=== PATIENT | male | born 1960 | race Caucasian/White ===

== ENCOUNTER → 2017-06-27 | Outpatient (CLI) | payer BC | END | disposition home or self-care (01) | LOC: US 07:29 | DX: N40.0 Benign prostatic hyperplasia without lower urinary tract symptoms (principal); N28.89 Other specified disorders of kidney and ureter ==

== ENCOUNTER 2018-03-11 19:54 | Emergency (ER) | payer BC ==
[~2018-03-11] VITALS: Ht 177.8 cm; Wt 132.4 kg
[2018-03-11] MEDS ORDERED: KEFLEX500 M1 PO (20:21)
== END 2018-03-11 22:22 | disposition home or self-care (01) ==
LOC: ED 19:54
DX: S01.01XA Laceration without foreign body of scalp, initial encounter (principal); R03.0 Elevated blood-pressure reading, without diagnosis of hypertension; W17.89XA Other fall from one level to another, initial encounter; Y93.01 Activity, walking, marching and hiking; Y92.098 Other place in other non-institutional residence as the place of occurrence of the external cause; Y99.8 Other external cause status

== ENCOUNTER → 2019-10-23 | Outpatient (CLI) | payer BC ==
[~2019-10-23] MED LIST: KEFLEX500 M1 PO
[2019-10-23 08:57] LABS: BASO % 0.5 % (0.0-1.0); EOS # 0.1 10*3/uL (0.0-0.4); EOS % 1.5 % (1.0-4.0); LYMPH # 1.4 10*3/uL (1.3-4.4); LYMPH % 21.1 % (27.0-41.0); MEAN CORPUSCULAR HGB 29.8 pg (27.0-31.0); MEAN CORPUSCULAR HGB CONC 32.4 g/dl (33.0-37.0); MEAN PLATELET VOLUME 9.2 fl (9.6-12.3); MONO # 0.4 10*3/uL (0.1-1.0); MONO % 6.8 % (3.0-9.0); NEUT # 4.6 10*3/uL (2.3-7.9); NEUT % 69.9 % (47.0-73.0); PLATELET COUNT AUTOMATED 221 10*3/uL (130-400); RED BLOOD COUNT 4.13 10*6/uL (4.50-5.90); RED CELL DISTRI WIDTH 13.2 % (0-14.5); RETICULOCYTE % 1.78 % (0.50-2.50); WHITE BLOOD COUNT 6.5 10*3/uL (4.8-10.8)
[2019-10-23 09:24] LABS: ALBUMIN 3.2 gm/dl (3.1-4.5); ALKALINE PHOSPHATASE 79 U/L (45-117); BUN 10 mg/dl (7-24); CHLORIDE 97 mmol/L (98-107); CHOLESTEROL 137 mg/dL (<200); CREATININE 0.72 mg/dL (0.70-1.30); GAMMA GLUTAMYL TRANSPEPTIDASE 68 U/L (15-85); HDL CHOLESTEROL 75 mg/dl (40-60); IRON 53 ug/dL (65-175); LDL CHOLESTEROL 53 mg/dL (9-159); POTASSIUM 4.6 mmol/L (3.5-5.1); SGOT/AST 13 IU/L (3-35); SGPT/ALT 26 U/L (12-78); SODIUM 133 mmol/L (136-145); TOTAL IRON BINDING CAPACITY 342 ug/dl (250-450); TOTAL PROTEIN 7.4 gm/dL (6.4-8.2); TRIGLYCERIDES 47 mg/dl (<150); URIC ACID 6.4 mg/dL (3.5-7.2); VLDL CHOLESTEROL 9 mg/dL (6-40)
[2019-10-23 09:59] LABS: BILIRUBIN NEGATIVE (NEGATIVE); CLARITY SL CLOUDY (CLEAR); COLOR YELLOW (YELLOW); GLUCOSE NEGATIVE (NEGATIVE); KETONE NEGATIVE (NEGATIVE)
[2019-10-23 10:00] LABS: BLOOD 3+ (NEGATIVE); LEUKO ESTERASE TRACE (NEGATIVE); NITRITE NEGATIVE (NEGATIVE); SPECIFIC GRAVITY 1.015 (1.005-1.030); UROBILINOGEN 0.2 E.U./dl (0.2-1.0)
[2019-10-23 10:01] LABS: RBC 51-100 rbc/hpf (0-2)
[2019-10-23 10:05] LABS: BACTERIA 1+
[2019-10-23 10:19] LABS: FERRITIN 118.2 ng/mL (22.0-322.0); VITAMIN D, 25-HYDROXY 30.6 ng/mL (30-100)
== END | disposition home or self-care (01) ==
LOC: LAB 08:27
PROVIDERS: Family Medicine
DX: E78.5 Hyperlipidemia, unspecified (principal); E55.9 Vitamin D deficiency, unspecified; R79.89 Other specified abnormal findings of blood chemistry; R53.83 Other fatigue

== ENCOUNTER → 2019-11-09 | Outpatient (CLI) | payer BC ==
[2019-11-09 10:02] LABS: HEMATOCRIT 40.7 % (42.0-52.0); MEAN CELL VOLUME 93.1 fl (80.0-94.0); MEAN CORPUSCULAR HGB 29.3 pg (27.0-31.0); MEAN CORPUSCULAR HGB CONC 31.4 g/dl (33.0-37.0); PLATELET COUNT AUTOMATED 173 10*3/uL (130-400); RED BLOOD COUNT 4.37 10*6/uL (4.50-5.90); RED CELL DISTRI WIDTH 14.1 % (0-14.5); RETICULOCYTE % 2.14 % (0.50-2.50); WHITE BLOOD COUNT 5.5 10*3/uL (4.8-10.8)
[2019-11-09 10:05] LABS: BILIRUBIN NEGATIVE (NEGATIVE); BLOOD 3+ (NEGATIVE); CLARITY CLEAR (CLEAR); COLOR YELLOW (YELLOW); GLUCOSE NEGATIVE (NEGATIVE); KETONE NEGATIVE (NEGATIVE); LEUKO ESTERASE NEGATIVE (NEGATIVE); NITRITE NEGATIVE (NEGATIVE); UROBILINOGEN 0.2 E.U./dl (0.2-1.0)
[2019-11-09 10:12] LABS: BACTERIA TRACE; RBC 31-40 rbc/hpf (0-2)
[2019-11-09 10:30] LABS: IRON 53 ug/dL (65-175); TOTAL IRON BINDING CAPACITY 340 ug/dl (250-450)
[2019-11-09 10:32] LABS: ALBUMIN 3.3 gm/dl (3.1-4.5); ALKALINE PHOSPHATASE 93 U/L (45-117); BUN 10 mg/dl (7-24); CHLORIDE 96 mmol/L (98-107); CREATININE 0.72 mg/dL (0.70-1.30); POTASSIUM 4.6 mmol/L (3.5-5.1); SGOT/AST 14 IU/L (3-35); SGPT/ALT 23 U/L (12-78); SODIUM 132 mmol/L (136-145); TOTAL PROTEIN 7.3 gm/dL (6.4-8.2)
[2019-11-09 10:51] LABS: BASOPHILS 2 % (0-1); TOTAL CELLS COUNTED 100 #CELLS
[2019-11-09 10:52] LABS: PLATELET SUFFICIENCY NORMAL (NORMAL)
[2019-11-10 08:08] LABS: TOTAL PROTEIN, SERUM 6.7 g/dL (6.0-8.5)
[2019-11-12 15:06] LABS: A/G RATIO 1.2 (0.7-1.7); ALBUMIN 3.6 g/dL (2.9-4.4); ALPHA-1-GLOBULIN 0.3 g/dL (0.0-0.4); ALPHA-2-GLOBULIN 0.7 g/dL (0.4-1.0); BETA GLOBULIN 1.1 g/dL (0.7-1.3); GLOBULIN, TOTAL 3.1 g/dL (2.2-3.9); M-SPIKE Not Observed g/dL (Not Observed)
== END | disposition home or self-care (01) ==
LOC: LAB 09:33
PROVIDERS: Family Medicine; Nurse Practitioner Family
DX: Z12.5 Encounter for screening for malignant neoplasm of prostate (principal); R31.9 Hematuria, unspecified; R53.83 Other fatigue; R79.89 Other specified abnormal findings of blood chemistry

== ENCOUNTER → 2019-11-16 | Outpatient (CLI) | payer BC | END | disposition home or self-care (01) | LOC: CT 11-12 10:00 | DX: R31.9 Hematuria, unspecified (principal) ==

== ENCOUNTER → 2020-08-02 | Outpatient (CLI) | payer BC ==
[2020-08-02 10:59] LABS: BILIRUBIN Negative (Negative); BLOOD 2+ (Negative); CLARITY Clear (Clear); COLOR Yellow (Yellow); GLUCOSE Negative (Negative); KETONE Negative (Negative); LEUKO ESTERASE Negative (Negative); NITRITE Negative (Negative); PH 5.5 (4.5-8.0); SPECIFIC GRAVITY 1.025 (1.001-1.030); UROBILINOGEN 0.2 E.U./dl (0.0-1.0)
[2020-08-02 11:26] LABS: ALBUMIN 3.7 gm/dl (3.1-4.5); ALKALINE PHOSPHATASE 81 U/L (45-117); BUN 28 mg/dl (7-24); CHLORIDE 103 mmol/L (98-107); SGOT/AST 15 IU/L (3-35); SGPT/ALT 21 U/L (12-78); SODIUM 134 mmol/L (136-145); TOTAL PROTEIN 7.7 gm/dL (6.4-8.2); URIC ACID 9.9 mg/dL (3.5-7.2)
[2020-08-02 11:37] LABS: BASO % 0.5 % (0.0-1.0); EOS # 0.2 10*3/uL (0.0-0.4); EOS % 2.8 % (1.0-4.0); HEMATOCRIT 38.4 % (42.0-52.0); LYMPH # 1.6 10*3/uL (1.3-4.4); LYMPH % 21.8 % (27.0-41.0); MEAN CELL VOLUME 91.2 fl (80.0-94.0); MEAN CORPUSCULAR HGB 29.9 pg (27.0-31.0); MEAN CORPUSCULAR HGB CONC 32.8 g/dl (33.0-37.0); MEAN PLATELET VOLUME 10.9 fl (9.6-12.3); MONO # 0.5 10*3/uL (0.1-1.0); MONO % 7.3 % (3.0-9.0); NEUT % 67.3 % (47.0-73.0); PLATELET COUNT AUTOMATED 184 10*3/uL (130-400); RED BLOOD COUNT 4.21 10*6/uL (4.50-5.90); RED CELL DISTRI WIDTH 13.2 % (0-14.5); WHITE BLOOD COUNT 7.4 10*3/uL (4.8-10.8)
[2020-08-02 12:26] LABS: BACTERIA TRACE
== END | disposition home or self-care (01) ==
LOC: LAB 09:36 → CT 10:00
PROVIDERS: Internal Medicine Nephrology; ATTEND Urology
DX: Z12.5 Encounter for screening for malignant neoplasm of prostate (principal); R31.9 Hematuria, unspecified; N28.89 Other specified disorders of kidney and ureter; K57.30 Diverticulosis of large intestine without perforation or abscess without bleeding; D40.0 Neoplasm of uncertain behavior of prostate; I10 Essential (primary) hypertension; R53.83 Other fatigue; Z90.5 Acquired absence of kidney

== ENCOUNTER 2020-08-19 10:21 | Emergency (ER) | payer BC ==
[~2020-08-19] VITALS: Ht 177.8 cm; Wt 127.0 kg
== END 2020-08-19 12:22 | disposition home or self-care (01) ==
LOC: ED 10:21
DX: R04.0 Epistaxis (principal); I10 Essential (primary) hypertension; I48.91 Unspecified atrial fibrillation; Z79.899 Other long term (current) drug therapy

== ENCOUNTER → 2021-06-02 | Outpatient (CLI) | payer BC | END | disposition home or self-care (01) | LOC: RAD 10:13 | PROVIDERS: ATTEND Family Medicine | DX: I70.292 Other atherosclerosis of native arteries of extremities, left leg (principal); M17.12 Unilateral primary osteoarthritis, left knee; M25.762 Osteophyte, left knee ==

== ENCOUNTER → 2021-08-31 | Outpatient (CLI) | payer BC ==
[2021-08-31 11:49] LABS: BILIRUBIN Negative (Negative); BLOOD Negative (Negative); CLARITY Clear (Clear); COLOR Yellow (Yellow); GLUCOSE Negative (Negative); KETONE Negative (Negative); LEUKO ESTERASE Negative (Negative); NITRITE Negative (Negative); PH 6.5 (4.5-8.0); SPECIFIC GRAVITY <= 1.005 (1.001-1.030); UROBILINOGEN 0.2 E.U./dl (0.0-1.0)
[2021-08-31 11:56] LABS: BASO % 0.6 % (0.0-1.0); EOS # 0.2 10*3/uL (0.0-0.4); EOS % 3.1 % (1.0-4.0); HEMATOCRIT 40.2 % (42.0-52.0); LYMPH # 1.5 10*3/uL (1.3-4.4); LYMPH % 20.9 % (27.0-41.0); MEAN CELL VOLUME 93.3 fl (80.0-94.0); MEAN CORPUSCULAR HGB 31.6 pg (27.0-31.0); MEAN CORPUSCULAR HGB CONC 33.8 g/dl (33.0-37.0); MONO # 0.6 10*3/uL (0.1-1.0); NEUT # 4.8 10*3/uL (2.3-7.9); NEUT % 67.1 % (47.0-73.0); PLATELET COUNT AUTOMATED 184 10*3/uL (130-400); RED BLOOD COUNT 4.31 10*6/uL (4.50-5.90); RED CELL DISTRI WIDTH 13.1 % (0-14.5); RETICULOCYTE % 2.36 % (0.50-2.50); WHITE BLOOD COUNT 7.1 10*3/uL (4.8-10.8)
[2021-08-31 12:02] LABS: FINE GRANULAR CAST 0-2; MUCOUS 1+; WBC 0-2 wbc/hpf (0-5)
[2021-08-31 12:09] LABS: BUN 24 mg/dl (7-24); CHLORIDE 97 mmol/L (98-107); CHOLESTEROL 161 mg/dL (<200); GAMMA GLUTAMYL TRANSPEPTIDASE 46 U/L (15-85); POTASSIUM 5.4 mmol/L (3.5-5.1); SODIUM 130 mmol/L (136-145); TRIGLYCERIDES 101 mg/dl (<150)
[2021-08-31 12:19] LABS: ALKALINE PHOSPHATASE 79 U/L (45-117); IRON 102 ug/dL (65-175); LDL CHOLESTEROL 60 mg/dL (9-159); SGOT/AST 10 IU/L (3-35); SGPT/ALT 17 U/L (12-78); TOTAL IRON BINDING CAPACITY 395 ug/dl (250-450); TOTAL PROTEIN 7.2 gm/dL (6.4-8.2)
[2021-08-31 12:46] LABS: VITAMIN D, 25-HYDROXY 26.3 ng/mL (30-100)
[2021-08-31 12:47] LABS: FERRITIN 56.7 ng/mL (22.0-322.0)
== END | disposition home or self-care (01) ==
LOC: LAB 11:26
PROVIDERS: ATTEND Family Medicine
DX: R74.8 Abnormal levels of other serum enzymes (principal); E78.5 Hyperlipidemia, unspecified; R79.89 Other specified abnormal findings of blood chemistry; R53.83 Other fatigue; E55.9 Vitamin D deficiency, unspecified

== ENCOUNTER → 2021-10-06 | Outpatient (CLI) | payer BC ==
[2021-10-06 11:52] LABS: BASO % 0.4 % (0.0-1.0); EOS # 0.2 10*3/uL (0.0-0.4); HEMATOCRIT 38.8 % (42.0-52.0); LYMPH # 1.4 10*3/uL (1.3-4.4); LYMPH % 19.1 % (27.0-41.0); MEAN CELL VOLUME 93.3 fl (80.0-94.0); MEAN CORPUSCULAR HGB 31.7 pg (27.0-31.0); MEAN PLATELET VOLUME 9.5 fl (9.6-12.3); MONO # 0.6 10*3/uL (0.1-1.0); MONO % 7.4 % (3.0-9.0); NEUT # 5.3 10*3/uL (2.3-7.9); NEUT % 70.8 % (47.0-73.0); PLATELET COUNT AUTOMATED 200 10*3/uL (130-400); RED BLOOD COUNT 4.16 10*6/uL (4.50-5.90); RED CELL DISTRI WIDTH 13.2 % (0-14.5); RETICULOCYTE % 3.13 % (0.50-2.50); WHITE BLOOD COUNT 7.4 10*3/uL (4.8-10.8)
[2021-10-06 12:08] LABS: ALKALINE PHOSPHATASE 71 U/L (45-117); BUN 30 mg/dl (7-24); CHLORIDE 97 mmol/L (98-107); CREATININE 1.44 mg/dL (0.70-1.30); IRON 74 ug/dL (65-175); POTASSIUM 5.3 mmol/L (3.5-5.1); SGOT/AST 13 IU/L (3-35); SGPT/ALT 18 U/L (12-78); SODIUM 130 mmol/L (136-145); TOTAL IRON BINDING CAPACITY 359 ug/dl (250-450)
== END | disposition home or self-care (01) ==
LOC: LAB 11:21
PROVIDERS: ATTEND Family Medicine
DX: E78.5 Hyperlipidemia, unspecified (principal); R79.89 Other specified abnormal findings of blood chemistry; R53.83 Other fatigue

== ENCOUNTER 2022-04-09 13:05 | Inpatient (IN) | payer BC ==
[~2022-04-09] VITALS: Ht 177.8 cm; Wt 136.3 kg
[2022-04-09 13:22] VITALS: BP 155/102
[2022-04-09 14:13] LABS: BASO % 0.2 % (0.0-1.0); EOS % 0.2 % (1.0-4.0); HEMATOCRIT 39.5 % (42.0-52.0); LYMPH # 0.8 10*3/uL (1.3-4.4); LYMPH % 7.7 % (27.0-41.0); MEAN CELL VOLUME 94.5 fl (80.0-94.0); MEAN CORPUSCULAR HGB 32.1 pg (27.0-31.0); MEAN CORPUSCULAR HGB CONC 33.9 g/dl (33.0-37.0); MEAN PLATELET VOLUME 9.7 fl (9.6-12.3); MONO # 1.1 10*3/uL (0.1-1.0); MONO % 9.8 % (3.0-9.0); NEUT # 8.8 10*3/uL (2.3-7.9); NEUT % 81.8 % (47.0-73.0); PLATELET COUNT AUTOMATED 183 10*3/uL (130-400); RED BLOOD COUNT 4.18 10*6/uL (4.50-5.90); RED CELL DISTRI WIDTH 12.9 % (0-14.5); WHITE BLOOD COUNT 10.8 10*3/uL (4.8-10.8)
[2022-04-09] MEDS ORDERED: LOSARTAN POTASS50 M1 PO (14:19)
[2022-04-09] MEDS ORDERED: FINASTERIDE5 M1 PO (14:19)
[2022-04-09] MEDS ORDERED: XARE20MG PO (14:20)
[2022-04-09] MEDS ORDERED: VITAMIN D3250 MCG PO (14:20)
[2022-04-09] MEDS ORDERED: CARTIA XT300 MG PO (14:20)
[2022-04-09] MEDS ORDERED: TAMSULOSIN HCL0.4 MG PO (14:21)
[2022-04-09] MEDS ORDERED: ALLOPURINOL100 MG PO (14:21)
[2022-04-09] MEDS ORDERED: ALDACTONE50 M1 PO (14:21)
[2022-04-09] MEDS ORDERED: LASIX40 MG PO (14:22)
[2022-04-09] MEDS ORDERED: METOPROLOL SUCC50 M2 PO (14:23)
[2022-04-09] MEDS ORDERED: VENT7GM INH (14:23)
[2022-04-09] MEDS ORDERED: SYMB160 INH (14:24)
[2022-04-09] MEDS ORDERED: VENTOLIN 02.5 MG/3 M INH (14:24)
[2022-04-09 14:27] LABS: INTERNATIONAL NORM RATIO 1.1 (2.0-3.5)
[2022-04-09 14:29] LABS: ALKALINE PHOSPHATASE 73 U/L (45-117); BUN 31 mg/dl (7-24); CHLORIDE 94 mmol/L (98-107); POTASSIUM 5.4 mmol/L (3.5-5.1); SGPT/ALT 18 U/L (12-78); SODIUM 128 mmol/L (136-145); TOTAL PROTEIN 7.6 gm/dL (6.4-8.2)
[2022-04-09 17:37] VITALS: BP 165/104
[2022-04-09 19:53] VITALS: BP 140/90
[2022-04-09 22:55] VITALS: BP 151/95
[2022-04-10 05:39] LABS: FREE T4 1.11 ng/dl (0.76-1.46); THYROID STIM HORMONE (HS) 0.772 uIU/ml (0.358-4.75)
[2022-04-10 06:08] LABS: MEAN CELL VOLUME 92.9 fl (80.0-94.0); MEAN CORPUSCULAR HGB 32.5 pg (27.0-31.0); MEAN PLATELET VOLUME 10.4 fl (9.6-12.3); PLATELET COUNT AUTOMATED 167 10*3/uL (130-400); RED BLOOD COUNT 4.09 10*6/uL (4.50-5.90); RED CELL DISTRI WIDTH 12.8 % (0-14.5); WHITE BLOOD COUNT 8.9 10*3/uL (4.8-10.8)
[2022-04-10 06:22] LABS: MANUAL DIFF REFLEX YES
[2022-04-10 06:51] LABS: PLATELET SUFFICIENCY NORMAL (NORMAL); TOTAL CELLS COUNTED 100 #CELLS
[2022-04-10 06:52] LABS: BURR CELLS FEW
[2022-04-10 06:57] LABS: VITAMIN D, 25-HYDROXY 33.4 ng/mL (30-100)
[2022-04-10 07:15] LABS: BUN 30 mg/dl (7-24); CHLORIDE 92 mmol/L (98-107); CREATININE 1.31 mg/dL (0.70-1.30); SODIUM 126 mmol/L (136-145)
[2022-04-10 08:00] VITALS: BP 133/87
[2022-04-10 12:00] VITALS: BP 122/82
[2022-04-10 16:00] VITALS: BP 125/75
[2022-04-10 20:00] VITALS: BP 146/85
[2022-04-10 23:52] VITALS: BP 132/84
[2022-04-11 06:03] LABS: CREATININE 1.53 mg/dL (0.70-1.30); POTASSIUM 4.7 mmol/L (3.5-5.1)
[2022-04-11 06:15] LABS: HEMATOCRIT 38.8 % (42.0-52.0); MEAN CELL VOLUME 93.5 fl (80.0-94.0); MEAN CORPUSCULAR HGB 31.8 pg (27.0-31.0); MEAN PLATELET VOLUME 10.8 fl (9.6-12.3); PLATELET COUNT AUTOMATED 181 10*3/uL (130-400); RED BLOOD COUNT 4.15 10*6/uL (4.50-5.90); WHITE BLOOD COUNT 11.3 10*3/uL (4.8-10.8)
[2022-04-11 06:25] LABS: MANUAL DIFF REFLEX YES
[2022-04-11 07:00] LABS: TOTAL CELLS COUNTED 100 #CELLS
[2022-04-11 07:01] LABS: PLATELET SUFFICIENCY NORMAL (NORMAL)
[2022-04-11 07:07] LABS: BURR CELLS FEW
[2022-04-11 08:00] VITALS: BP 132/91
[2022-04-11 12:00] VITALS: BP 121/68
[2022-04-11 16:00] VITALS: BP 143/84
[2022-04-11 20:00] VITALS: BP 123/77
[2022-04-12] VITALS: BP 135/89
[2022-04-12 06:09] LABS: BASO % 0.1 % (0.0-1.0); HEMATOCRIT 39.7 % (42.0-52.0); LYMPH # 0.6 10*3/uL (1.3-4.4); LYMPH % 5.7 % (27.0-41.0); MEAN CELL VOLUME 93.6 fl (80.0-94.0); MEAN CORPUSCULAR HGB 32.3 pg (27.0-31.0); MEAN CORPUSCULAR HGB CONC 34.5 g/dl (33.0-37.0); MEAN PLATELET VOLUME 10.4 fl (9.6-12.3); MONO # 0.4 10*3/uL (0.1-1.0); MONO % 4.2 % (3.0-9.0); NEUT # 9.4 10*3/uL (2.3-7.9); NEUT % 89.2 % (47.0-73.0); PLATELET COUNT AUTOMATED 188 10*3/uL (130-400); RED BLOOD COUNT 4.24 10*6/uL (4.50-5.90); RED CELL DISTRI WIDTH 12.8 % (0-14.5); WHITE BLOOD COUNT 10.6 10*3/uL (4.8-10.8)
[2022-04-12 06:19] LABS: CREATININE 1.49 mg/dL (0.70-1.30); POTASSIUM 4.7 mmol/L (3.5-5.1)
[2022-04-12 08:00] VITALS: BP 146/91
[2022-04-12 12:00] VITALS: BP 127/86
[2022-04-12 14:26] LABS: URINE CREATININE RANDOM 34.4 mg/dL
[2022-04-12 16:00] VITALS: BP 128/86
[2022-04-12 20:00] VITALS: BP 121/79
[2022-04-13] VITALS: BP 135/78
[2022-04-13 05:39] LABS: CREATININE 1.62 mg/dL (0.70-1.30); POTASSIUM 4.6 mmol/L (3.5-5.1)
[2022-04-13 06:28] LABS: BASO % 0.1 % (0.0-1.0); HEMATOCRIT 41.3 % (42.0-52.0); LYMPH # 0.9 10*3/uL (1.3-4.4); LYMPH % 9.1 % (27.0-41.0); MEAN CELL VOLUME 96.5 fl (80.0-94.0); MEAN CORPUSCULAR HGB 31.8 pg (27.0-31.0); MEAN CORPUSCULAR HGB CONC 32.9 g/dl (33.0-37.0); MEAN PLATELET VOLUME 10.6 fl (9.6-12.3); MONO # 0.7 10*3/uL (0.1-1.0); MONO % 7.2 % (3.0-9.0); NEUT % 82.5 % (47.0-73.0); PLATELET COUNT AUTOMATED 188 10*3/uL (130-400); RED BLOOD COUNT 4.28 10*6/uL (4.50-5.90); RED CELL DISTRI WIDTH 12.7 % (0-14.5); WHITE BLOOD COUNT 9.7 10*3/uL (4.8-10.8)
[2022-04-13 08:00] VITALS: BP 153/90
[2022-04-13] MEDS ORDERED: LEVOFLOXACIN750 M2 PO (11:46)
[2022-04-13] MEDS ORDERED: ASPIRIN ADULT L81 M2 PO (11:46)
[2022-04-13] MEDS ORDERED: ATORVASTATIN CA40 M1 PO (11:46)
[2022-04-13] MEDS ORDERED: LASIX40 MG PO (11:46)
[2022-04-13] MEDS ORDERED: PREDNISONE10 MG PO (11:46)
[2022-04-13] MEDS ORDERED: METOPROLOL SUCC25 M2 PO ×2 (11:46→12:18)
[2022-04-13 12:00] VITALS: BP 119/77
== END 2022-04-13 14:17 | disposition home or self-care (01) | DRG 871 ==
LOC: ED 13:05 → EDHOLD 17:38 → 4E 17:38
PROVIDERS: Family Medicine; Internal Medicine; Student in an Organized Health Care Education/Training Program; ADMIT Family Medicine; ATTEND Family Medicine
DX: A41.9 Sepsis, unspecified organism (principal); I50.31 Acute diastolic (congestive) heart failure; J18.9 Pneumonia, unspecified organism; J98.11 Atelectasis; E87.1 Hypo-osmolality and hyponatremia; J44.1 Chronic obstructive pulmonary disease with (acute) exacerbation; C64.9 Malignant neoplasm of unspecified kidney, except renal pelvis; J44.0 Chronic obstructive pulmonary disease with (acute) lower respiratory infection; D53.9 Nutritional anemia, unspecified; E87.5 Hyperkalemia; I25.10 Atherosclerotic heart disease of native coronary artery without angina pectoris; E87.8 Other disorders of electrolyte and fluid balance, not elsewhere classified; R73.9 Hyperglycemia, unspecified; E83.42 Hypomagnesemia; I48.91 Unspecified atrial fibrillation; Z90.5 Acquired absence of kidney; Z85.528 Personal history of other malignant neoplasm of kidney

== ENCOUNTER → 2022-06-15 | Outpatient (CLI) | payer BC ==
[~2022-06-15] MED LIST changes: +ALDACTONE50 M1 PO; +ALLOPURINOL100 MG PO; +ASPIRIN ADULT L81 M2 PO; +ATORVASTATIN CA40 M1 PO; +CARTIA XT300 MG PO; +FINASTERIDE5 M1 PO; +LASIX40 MG PO; +LEVOFLOXACIN750 M2 PO; +LOSARTAN POTASS50 M1 PO; +METOPROLOL SUCC25 M2 PO; +METOPROLOL SUCC50 M2 PO; +PREDNISONE10 MG PO; +SYMB160 INH; +TAMSULOSIN HCL0.4 MG PO; +VENT7GM INH; +VENTOLIN 02.5 MG/3 M INH; +VITAMIN D3250 MCG PO; +XARE20MG PO
[2022-06-15 10:05] LABS: BASO % 0.3 % (0.0-1.0); EOS % 0.6 % (1.0-4.0); HEMATOCRIT 42.1 % (42.0-52.0); LYMPH # 1.2 10*3/uL (1.3-4.4); LYMPH % 16.7 % (27.0-41.0); MEAN CELL VOLUME 98.1 fl (80.0-94.0); MEAN CORPUSCULAR HGB CONC 31.6 g/dl (33.0-37.0); MEAN PLATELET VOLUME 10.4 fl (9.6-12.3); MONO # 0.7 10*3/uL (0.1-1.0); MONO % 10.5 % (3.0-9.0); NEUT # 5.1 10*3/uL (2.3-7.9); NEUT % 71.6 % (47.0-73.0); PLATELET COUNT AUTOMATED 163 10*3/uL (130-400); RED BLOOD COUNT 4.29 10*6/uL (4.50-5.90); RED CELL DISTRI WIDTH 13.2 % (0-14.5); RETICULOCYTE % 2.02 % (0.50-2.50); WHITE BLOOD COUNT 7.1 10*3/uL (4.8-10.8)
[2022-06-15 10:17] LABS: BILIRUBIN Negative (Negative); BLOOD Negative (Negative); CLARITY Clear (Clear); COLOR Yellow (Yellow); GLUCOSE Negative (Negative); KETONE Negative (Negative); LEUKO ESTERASE Negative (Negative); NITRITE Negative (Negative); PH 6.5 (4.5-8.0)
[2022-06-15 10:29] LABS: ALKALINE PHOSPHATASE 77 U/L (46-116); BUN 22 mg/dl (9-23); CHLORIDE 95 mmol/L (98-107); CHOLESTEROL 149 mg/dL (<200); GAMMA GLUTAMYL TRANSPEPTIDASE 27 U/L (0-73); LDL CHOLESTEROL 64 mg/dL (9-159); POTASSIUM 4.4 mmol/L (3.4-5.1); SGPT/ALT 12 U/L (10-49); THYROID STIM HORMONE (HS) 2.231 uIU/ml (0.550-4.780); TOTAL PROTEIN 6.3 gm/dL (6.0-8.0); TRIGLYCERIDES 99 mg/dl (<150)
[2022-06-15 10:31] LABS: RBC 0-2 rbc/hpf (0-2); WBC 0-2 wbc/hpf (0-5)
== END | disposition home or self-care (01) ==
LOC: LAB 08:56
PROVIDERS: ATTEND Family Medicine
DX: J43.9 Emphysema, unspecified (principal); E78.5 Hyperlipidemia, unspecified; E55.9 Vitamin D deficiency, unspecified; R79.89 Other specified abnormal findings of blood chemistry; R53.83 Other fatigue; R74.8 Abnormal levels of other serum enzymes; I51.7 Cardiomegaly; M47.814 Spondylosis without myelopathy or radiculopathy, thoracic region

== ENCOUNTER → 2022-08-11 | Outpatient (CLI) | payer BC ==
[2022-08-11 10:32] LABS: BASO % 0.7 % (0.0-1.0); EOS # 0.1 10*3/uL (0.0-0.4); EOS % 1.7 % (1.0-4.0); HEMATOCRIT 43.3 % (42.0-52.0); LYMPH # 1.3 10*3/uL (1.3-4.4); LYMPH % 22.8 % (27.0-41.0); MEAN CELL VOLUME 94.3 fl (80.0-94.0); MEAN CORPUSCULAR HGB 30.3 pg (27.0-31.0); MEAN CORPUSCULAR HGB CONC 32.1 g/dl (33.0-37.0); MEAN PLATELET VOLUME 10.7 fl (9.6-12.3); MONO # 0.5 10*3/uL (0.1-1.0); MONO % 8.1 % (3.0-9.0); NEUT # 3.8 10*3/uL (2.3-7.9); NEUT % 66.5 % (47.0-73.0); PLATELET COUNT AUTOMATED 172 10*3/uL (130-400); RED BLOOD COUNT 4.59 10*6/uL (4.50-5.90); RED CELL DISTRI WIDTH 12.8 % (0-14.5); WHITE BLOOD COUNT 5.8 10*3/uL (4.8-10.8)
[2022-08-11 10:36] LABS: BILIRUBIN Negative (Negative); BLOOD Negative (Negative); CLARITY Clear (Clear); COLOR Yellow (Yellow); GLUCOSE 1+ (Negative); KETONE Negative (Negative); LEUKO ESTERASE Negative (Negative); NITRITE Negative (Negative); PH 6.5 (4.5-8.0); UROBILINOGEN 0.2 E.U./dl (0.0-1.0)
[2022-08-11 10:43] LABS: WBC 0-2 wbc/hpf (0-5)
[2022-08-11 10:55] LABS: URINE CREATININE RANDOM 27.02 mg/dL
[2022-08-11 11:02] LABS: VITAMIN D, 25-HYDROXY 51.7 ng/mL (30-100)
[2022-08-11 13:19] LABS: BUN 42 mg/dl (9-23); CHLORIDE 102 mmol/L (98-107); POTASSIUM 4.4 mmol/L (3.4-5.1); URIC ACID 8.8 mg/dL (3.7-9.2)
== END | disposition home or self-care (01) ==
LOC: LAB 10:09
PROVIDERS: ATTEND Internal Medicine Nephrology
DX: N18.30 Chronic kidney disease, stage 3 unspecified (principal); D63.1 Anemia in chronic kidney disease; N25.81 Secondary hyperparathyroidism of renal origin; E79.0 Hyperuricemia without signs of inflammatory arthritis and tophaceous disease

== ENCOUNTER → 2022-09-03 | Day surgery (SDC) | payer BC ==
[~2022-09-03] MED LIST changes: +JARDIANCE10 MG PO; +TOPROL XL50 M1 PO
[2022-09-03 10:23] VITALS: BP 133/64
[2022-09-03 13:24] LABS: BF LYMPHOCYTES 91 %; BF MACROPHAGES 9 %
== END | disposition home or self-care (01) ==
PROVIDERS: ATTEND Internal Medicine Critical Care Medicine
DX: J96.11 Chronic respiratory failure with hypoxia (principal); J43.9 Emphysema, unspecified; J94.8 Other specified pleural conditions; I48.91 Unspecified atrial fibrillation; Z87.891 Personal history of nicotine dependence; Z99.81 Dependence on supplemental oxygen; Z85.528 Personal history of other malignant neoplasm of kidney

== ENCOUNTER → 2022-10-11 | Outpatient (CLI) | payer BC ==
[2022-10-11 10:19] LABS: BILIRUBIN Negative (Negative); BLOOD Trace-Intact (Negative); CLARITY Clear (Clear); COLOR Yellow (Yellow); GLUCOSE 2+ (Negative); KETONE Negative (Negative); LEUKO ESTERASE Negative (Negative); NITRITE Negative (Negative); SPECIFIC GRAVITY 1.015 (1.001-1.030)
[2022-10-11 10:20] LABS: BASO # 0.1 10*3/uL (0.0-0.1); BASO % 0.9 % (0.0-1.0); EOS # 0.2 10*3/uL (0.0-0.4); EOS % 2.6 % (1.0-4.0); HEMATOCRIT 43.6 % (42.0-52.0); LYMPH # 0.9 10*3/uL (1.3-4.4); LYMPH % 12.6 % (27.0-41.0); MEAN CELL VOLUME 94.6 fl (80.0-94.0); MEAN CORPUSCULAR HGB 29.1 pg (27.0-31.0); MEAN CORPUSCULAR HGB CONC 30.7 g/dl (33.0-37.0); MEAN PLATELET VOLUME 10.5 fl (9.6-12.3); MONO # 0.6 10*3/uL (0.1-1.0); MONO % 8.7 % (3.0-9.0); NEUT # 5.3 10*3/uL (2.3-7.9); NEUT % 74.9 % (47.0-73.0); PLATELET COUNT AUTOMATED 226 10*3/uL (130-400); RED BLOOD COUNT 4.61 10*6/uL (4.50-5.90); RED CELL DISTRI WIDTH 13.3 % (0-14.5); RETICULOCYTE % 1.62 % (0.50-2.50); WHITE BLOOD COUNT 7.1 10*3/uL (4.8-10.8)
[2022-10-11 10:31] LABS: BACTERIA TRACE; EPITHELIAL CELLS 41-50
[2022-10-11 10:54] LABS: ALKALINE PHOSPHATASE 107 U/L (46-116); BUN 22 mg/dl (9-23); CHLORIDE 102 mmol/L (98-107); CHOLESTEROL 163 mg/dL (<200); GAMMA GLUTAMYL TRANSPEPTIDASE 94 U/L (0-73); LDL CHOLESTEROL 105 mg/dL (9-159); POTASSIUM 4.3 mmol/L (3.4-5.1); SGPT/ALT 20 U/L (10-49); T3 UPTAKE 28.9 % (22.4-36.7); TOTAL PROTEIN 7.1 gm/dL (6.0-8.0); TRIGLYCERIDES 84 mg/dl (<150)
== END | disposition home or self-care (01) ==
LOC: LAB 09:34
PROVIDERS: ATTEND Family Medicine
DX: E78.5 Hyperlipidemia, unspecified (principal); R79.89 Other specified abnormal findings of blood chemistry; R53.83 Other fatigue; R74.8 Abnormal levels of other serum enzymes

== ENCOUNTER → 2023-01-04 | Outpatient (CLI) | payer BC ==
[2023-01-04 09:23] LABS: BASO % 0.5 % (0.0-1.0); BILIRUBIN Negative (Negative); BLOOD Negative (Negative); CLARITY Clear (Clear); COLOR Yellow (Yellow); EOS # 0.1 10*3/uL (0.0-0.4); GLUCOSE Trace (Negative); HEMATOCRIT 45.3 % (42.0-52.0); KETONE Negative (Negative); LEUKO ESTERASE Negative (Negative); LYMPH # 0.7 10*3/uL (1.3-4.4); LYMPH % 8.1 % (27.0-41.0); MEAN CELL VOLUME 93.6 fl (80.0-94.0); MEAN CORPUSCULAR HGB 28.7 pg (27.0-31.0); MEAN CORPUSCULAR HGB CONC 30.7 g/dl (33.0-37.0); MEAN PLATELET VOLUME 10.5 fl (9.6-12.3); MONO # 0.3 10*3/uL (0.1-1.0); MONO % 3.9 % (3.0-9.0); NEUT # 7.5 10*3/uL (2.3-7.9); NEUT % 86.3 % (47.0-73.0); NITRITE Negative (Negative); PH 7.5 (4.5-8.0); PLATELET COUNT AUTOMATED 215 10*3/uL (130-400); RED BLOOD COUNT 4.84 10*6/uL (4.50-5.90); RED CELL DISTRI WIDTH 15.3 % (0-14.5); RETICULOCYTE % 1.98 % (0.50-2.50); WHITE BLOOD COUNT 8.7 10*3/uL (4.8-10.8)
[2023-01-04 09:37] LABS: RBC 0-2 rbc/hpf (0-2)
[2023-01-04 09:38] LABS: HYALINE CAST 0-2
[2023-01-04 14:44] LABS: POTASSIUM 4.4 mmol/L (3.4-5.1); TOTAL PROTEIN 7.3 gm/dL (6.0-8.0)
== END | disposition home or self-care (01) ==
LOC: LAB 08:59
PROVIDERS: ATTEND Family Medicine
DX: R79.89 Other specified abnormal findings of blood chemistry (principal); R53.83 Other fatigue; E78.5 Hyperlipidemia, unspecified

== ENCOUNTER → 2023-01-05 | Outpatient (CLI) | payer BC | END | disposition home or self-care (01) | LOC: WOUNDCARE 01:37 | PROVIDERS: ATTEND Nurse Practitioner Family | DX: L03.116 Cellulitis of left lower limb (principal); S81.812A Laceration without foreign body, left lower leg, initial encounter; R60.9 Edema, unspecified; I48.0 Paroxysmal atrial fibrillation; I11.0 Hypertensive heart disease with heart failure; I50.9 Heart failure, unspecified; E78.00 Pure hypercholesterolemia, unspecified; J43.9 Emphysema, unspecified; M10.9 Gout, unspecified; M19.90 Unspecified osteoarthritis, unspecified site; Z87.891 Personal history of nicotine dependence; X58.XXXA Exposure to other specified factors, initial encounter; Y93.89 Activity, other specified; Y92.89 Other specified places as the place of occurrence of the external cause; Y99.8 Other external cause status ==

== ENCOUNTER → 2023-01-19 | Outpatient (CLI) | payer BC | END | disposition home or self-care (01) | LOC: WOUNDCARE 01:19 | PROVIDERS: ATTEND Nurse Practitioner Family | DX: S81.802D Unspecified open wound, left lower leg, subsequent encounter (principal); S81.812D Laceration without foreign body, left lower leg, subsequent encounter; L03.116 Cellulitis of left lower limb; J43.9 Emphysema, unspecified; E78.00 Pure hypercholesterolemia, unspecified; M10.9 Gout, unspecified; M19.90 Unspecified osteoarthritis, unspecified site; I11.0 Hypertensive heart disease with heart failure; I50.9 Heart failure, unspecified; R60.9 Edema, unspecified; I48.0 Paroxysmal atrial fibrillation; Z87.891 Personal history of nicotine dependence; X58.XXXD Exposure to other specified factors, subsequent encounter ==

== ENCOUNTER → 2023-01-26 | Outpatient (CLI) | payer BC | END | disposition home or self-care (01) | LOC: US 01:27 | PROVIDERS: ATTEND Nurse Practitioner Family | DX: I87.2 Venous insufficiency (chronic) (peripheral) (principal); R60.9 Edema, unspecified; L97.929 Non-pressure chronic ulcer of unspecified part of left lower leg with unspecified severity; I10 Essential (primary) hypertension ==

== ENCOUNTER → 2023-01-27 | Outpatient (CLI) | payer BC | LOC: WOUNDCARE 01:49 | PROVIDERS: ATTEND Nurse Practitioner Family | DX: L03.116 Cellulitis of left lower limb (principal); S81.802D Unspecified open wound, left lower leg, subsequent encounter; R60.9 Edema, unspecified; I48.0 Paroxysmal atrial fibrillation; E78.00 Pure hypercholesterolemia, unspecified; I11.0 Hypertensive heart disease with heart failure; I50.9 Heart failure, unspecified; J43.9 Emphysema, unspecified; M19.90 Unspecified osteoarthritis, unspecified site; M10.9 Gout, unspecified; Z87.891 Personal history of nicotine dependence; X58.XXXD Exposure to other specified factors, subsequent encounter ==

== ENCOUNTER → 2023-02-01 | Outpatient (CLI) | payer BC ==
[2023-02-01 11:49] LABS: POTASSIUM 4.7 mmol/L (3.4-5.1)
== END | disposition home or self-care (01) ==
LOC: LAB 11:13
PROVIDERS: ATTEND Internal Medicine
DX: N18.9 Chronic kidney disease, unspecified (principal)

== ENCOUNTER → 2023-02-10 | Outpatient (CLI) | payer BC | END | disposition home or self-care (01) | LOC: WOUNDCARE 00:35 | PROVIDERS: ATTEND Nurse Practitioner Family | DX: L03.116 Cellulitis of left lower limb (principal); S81.802D Unspecified open wound, left lower leg, subsequent encounter; S81.812D Laceration without foreign body, left lower leg, subsequent encounter; R60.9 Edema, unspecified; I48.0 Paroxysmal atrial fibrillation; E78.00 Pure hypercholesterolemia, unspecified; I48.91 Unspecified atrial fibrillation; I11.0 Hypertensive heart disease with heart failure; I50.9 Heart failure, unspecified; J43.9 Emphysema, unspecified; M10.9 Gout, unspecified; M19.90 Unspecified osteoarthritis, unspecified site; Z87.891 Personal history of nicotine dependence; X58.XXXD Exposure to other specified factors, subsequent encounter ==

== ENCOUNTER → 2023-02-24 | Outpatient (CLI) | payer BC | END | disposition home or self-care (01) | LOC: WOUNDCARE 01:32 | PROVIDERS: ATTEND Nurse Practitioner Family | DX: L03.116 Cellulitis of left lower limb (principal); S81.802D Unspecified open wound, left lower leg, subsequent encounter; L97.822 Non-pressure chronic ulcer of other part of left lower leg with fat layer exposed; R60.9 Edema, unspecified; I48.0 Paroxysmal atrial fibrillation; E78.00 Pure hypercholesterolemia, unspecified; J43.9 Emphysema, unspecified; I48.91 Unspecified atrial fibrillation; I11.0 Hypertensive heart disease with heart failure; I50.9 Heart failure, unspecified; M10.9 Gout, unspecified; M19.90 Unspecified osteoarthritis, unspecified site; Z87.891 Personal history of nicotine dependence; X58.XXXD Exposure to other specified factors, subsequent encounter ==

== ENCOUNTER → 2023-03-01 | Outpatient (CLI) | payer BC | LOC: WOUNDCARE 00:43 | PROVIDERS: ATTEND Nurse Practitioner Family | DX: S81.802D Unspecified open wound, left lower leg, subsequent encounter (principal); L97.822 Non-pressure chronic ulcer of other part of left lower leg with fat layer exposed; L03.116 Cellulitis of left lower limb; R60.9 Edema, unspecified; I48.0 Paroxysmal atrial fibrillation; E78.00 Pure hypercholesterolemia, unspecified; I11.0 Hypertensive heart disease with heart failure; I50.9 Heart failure, unspecified; J43.9 Emphysema, unspecified; M10.9 Gout, unspecified; M19.90 Unspecified osteoarthritis, unspecified site; Z87.891 Personal history of nicotine dependence; X58.XXXD Exposure to other specified factors, subsequent encounter ==

== ENCOUNTER → 2023-03-08 | Outpatient (CLI) | payer BC | END | disposition home or self-care (01) | LOC: WOUNDCARE 04:24 | PROVIDERS: ATTEND Nurse Practitioner Family | DX: L97.822 Non-pressure chronic ulcer of other part of left lower leg with fat layer exposed (principal); I87.2 Venous insufficiency (chronic) (peripheral); S81.802D Unspecified open wound, left lower leg, subsequent encounter; L03.116 Cellulitis of left lower limb; R60.9 Edema, unspecified; E78.00 Pure hypercholesterolemia, unspecified; I48.0 Paroxysmal atrial fibrillation; I73.9 Peripheral vascular disease, unspecified; I11.0 Hypertensive heart disease with heart failure; I50.9 Heart failure, unspecified; J43.9 Emphysema, unspecified; M10.9 Gout, unspecified; M19.90 Unspecified osteoarthritis, unspecified site; Z87.891 Personal history of nicotine dependence; X58.XXXD Exposure to other specified factors, subsequent encounter ==

== ENCOUNTER → 2023-03-15 | Outpatient (CLI) | payer BC | END | disposition home or self-care (01) | LOC: WOUNDCARE 04:38 | PROVIDERS: ATTEND Nurse Practitioner Family | DX: L97.822 Non-pressure chronic ulcer of other part of left lower leg with fat layer exposed (principal); S81.802D Unspecified open wound, left lower leg, subsequent encounter; I87.2 Venous insufficiency (chronic) (peripheral); R60.9 Edema, unspecified; L03.116 Cellulitis of left lower limb; I11.0 Hypertensive heart disease with heart failure; I50.9 Heart failure, unspecified; I48.0 Paroxysmal atrial fibrillation; E78.00 Pure hypercholesterolemia, unspecified; J43.9 Emphysema, unspecified; M10.9 Gout, unspecified; M19.90 Unspecified osteoarthritis, unspecified site; Z87.891 Personal history of nicotine dependence; X58.XXXD Exposure to other specified factors, subsequent encounter ==

== ENCOUNTER 2023-03-21 12:56 | Emergency (ER) | payer BC ==
[~2023-03-21] VITALS: Ht 177.8 cm; Wt 153.3 kg
[2023-03-21 13:09] VITALS: BP 139/95
[2023-03-21] MEDS ORDERED: BUMETANIDE1 MG PO (13:20)
[2023-03-21 13:41] LABS: BASO % 0.3 % (0.0-1.0); EOS # 0.1 10*3/uL (0.0-0.4); EOS % 1.9 % (1.0-4.0); LYMPH # 0.8 10*3/uL (1.3-4.4); LYMPH % 11.9 % (27.0-41.0); MEAN CELL VOLUME 98.5 fl (80.0-94.0); MEAN CORPUSCULAR HGB 30.8 pg (27.0-31.0); MEAN CORPUSCULAR HGB CONC 31.3 g/dl (33.0-37.0); MEAN PLATELET VOLUME 10.9 fl (9.6-12.3); MONO # 0.6 10*3/uL (0.1-1.0); MONO % 9.6 % (3.0-9.0); NEUT # 4.9 10*3/uL (2.3-7.9); PLATELET COUNT AUTOMATED 189 10*3/uL (130-400); RED BLOOD COUNT 3.96 10*6/uL (4.50-5.90); RED CELL DISTRI WIDTH 14.6 % (0-14.5); WHITE BLOOD COUNT 6.5 10*3/uL (4.8-10.8)
[2023-03-21 13:52] LABS: ACT PARTIAL THROMBO TIME 35.7 SECONDS (20.0-32.1); INTERNATIONAL NORM RATIO 1.1 (2.0-3.5)
[2023-03-21 14:12] LABS: ALKALINE PHOSPHATASE 88 U/L (46-116); BUN 36 mg/dl (9-23); CHLORIDE 102 mmol/L (98-107); LIPASE 29 U/L (12-53); POTASSIUM 4.7 mmol/L (3.4-5.1); SGPT/ALT 13 U/L (5-49); TOTAL PROTEIN 6.5 gm/dL (6.0-8.0)
[2023-03-21 15:32] VITALS: BP 137/92
[2023-03-21 16:23] VITALS: BP 138/94
[2023-03-21 18:39] VITALS: BP 140/83
[2023-03-21 22:38] VITALS: BP 124/73
[2023-03-22] VITALS: BP 142/80
[2023-03-22 03:22] VITALS: BP 140/70
[2023-03-22 07:25] VITALS: BP 148/95
[2023-03-22 08:02] LABS: RED CELL DISTRI WIDTH 14.4 % (0-14.5)
[2023-03-22 08:36] LABS: CHLORIDE 102 mmol/L (98-107); POTASSIUM 5.2 mmol/L (3.4-5.1)
[2023-03-22 08:39] LABS: BUN 22 mg/dl (9-23)
[2023-03-22 09:04] LABS: HEMATOCRIT 43.6 % (42.0-52.0); MEAN CELL VOLUME 96.2 fl (80.0-94.0); MEAN CORPUSCULAR HGB 30.2 pg (27.0-31.0); MEAN CORPUSCULAR HGB CONC 31.4 g/dl (33.0-37.0); MEAN PLATELET VOLUME 10.6 fl (9.6-12.3); PLATELET COUNT AUTOMATED 200 10*3/uL (130-400); RED BLOOD COUNT 4.53 10*6/uL (4.50-5.90); WHITE BLOOD COUNT 8.9 10*3/uL (4.8-10.8)
[2023-03-22 09:21] LABS: MANUAL DIFF REFLEX YES
[2023-03-22 09:31] LABS: PLATELET SUFFICIENCY NORMAL (NORMAL); TOTAL CELLS COUNTED 100 #CELLS
[2023-03-22 11:14] VITALS: BP 138/75
[2023-03-22 15:11] VITALS: BP 138/76
[2023-03-22 19:55] VITALS: BP 130/74
[2023-03-23 02:52] VITALS: BP 116/78
[2023-03-23 06:30] VITALS: BP 133/92
[2023-03-23 07:44] VITALS: BP 133/92
[2023-03-23 12:13] VITALS: BP 131/92
== END 2023-03-23 12:43 | disposition short-term general hospital (02) ==
LOC: ED 12:56 → EDHOLD 15:07 → ED 03-23 12:43
PROVIDERS: Family Medicine; Physician Assistant Medical
DX: J18.9 Pneumonia, unspecified organism (principal); J90 Pleural effusion, not elsewhere classified; I48.91 Unspecified atrial fibrillation; J44.9 Chronic obstructive pulmonary disease, unspecified; Z98.890 Other specified postprocedural states

== ENCOUNTER → 2023-04-05 | Outpatient (CLI) | payer BC ==
[~2023-04-05] MED LIST changes: +BUMETANIDE1 MG PO
== END | disposition home or self-care (01) ==
LOC: WOUNDCARE 00:27
PROVIDERS: ATTEND Nurse Practitioner Family
DX: S81.802D Unspecified open wound, left lower leg, subsequent encounter (principal); L97.822 Non-pressure chronic ulcer of other part of left lower leg with fat layer exposed; L03.116 Cellulitis of left lower limb; I87.2 Venous insufficiency (chronic) (peripheral); R60.9 Edema, unspecified; I73.9 Peripheral vascular disease, unspecified; I10 Essential (primary) hypertension; I48.0 Paroxysmal atrial fibrillation; E78.00 Pure hypercholesterolemia, unspecified; J43.9 Emphysema, unspecified; I11.0 Hypertensive heart disease with heart failure; I50.9 Heart failure, unspecified; I48.91 Unspecified atrial fibrillation; M19.90 Unspecified osteoarthritis, unspecified site; M10.9 Gout, unspecified; Z87.891 Personal history of nicotine dependence; X58.XXXD Exposure to other specified factors, subsequent encounter

== ENCOUNTER → 2023-04-12 | Outpatient (CLI) | payer BC | END | disposition home or self-care (01) | LOC: WOUNDCARE 02:19 | PROVIDERS: ATTEND Nurse Practitioner Family | DX: L97.822 Non-pressure chronic ulcer of other part of left lower leg with fat layer exposed (principal); S81.802D Unspecified open wound, left lower leg, subsequent encounter; I87.2 Venous insufficiency (chronic) (peripheral); I73.9 Peripheral vascular disease, unspecified; R60.9 Edema, unspecified; L03.116 Cellulitis of left lower limb; I48.0 Paroxysmal atrial fibrillation; I11.0 Hypertensive heart disease with heart failure; I50.9 Heart failure, unspecified; E78.00 Pure hypercholesterolemia, unspecified; J43.9 Emphysema, unspecified; M10.9 Gout, unspecified; M19.90 Unspecified osteoarthritis, unspecified site; Z87.891 Personal history of nicotine dependence; X58.XXXD Exposure to other specified factors, subsequent encounter ==

== ENCOUNTER → 2023-04-19 | Outpatient (CLI) | payer BC | END | disposition home or self-care (01) | LOC: WOUNDCARE 00:30 | PROVIDERS: ATTEND Nurse Practitioner Family | DX: S81.802D Unspecified open wound, left lower leg, subsequent encounter (principal); L97.822 Non-pressure chronic ulcer of other part of left lower leg with fat layer exposed; L03.116 Cellulitis of left lower limb; R60.9 Edema, unspecified; I87.2 Venous insufficiency (chronic) (peripheral); I73.9 Peripheral vascular disease, unspecified; I48.0 Paroxysmal atrial fibrillation; E78.00 Pure hypercholesterolemia, unspecified; I11.0 Hypertensive heart disease with heart failure; I50.9 Heart failure, unspecified; J43.9 Emphysema, unspecified; M10.9 Gout, unspecified; M19.90 Unspecified osteoarthritis, unspecified site; Z87.891 Personal history of nicotine dependence; X58.XXXD Exposure to other specified factors, subsequent encounter ==

== ENCOUNTER → 2023-04-22 | Outpatient (CLI) | payer BC | END | disposition home or self-care (01) | LOC: LAB 09:21 → CARD 09:21 | PROVIDERS: ATTEND Specialist | DX: Z01.818 Encounter for other preprocedural examination (principal); I48.91 Unspecified atrial fibrillation; I49.3 Ventricular premature depolarization ==

== ENCOUNTER → 2023-04-26 | Outpatient (CLI) | payer BC | END | disposition home or self-care (01) | LOC: WOUNDCARE 00:47 | PROVIDERS: ATTEND Nurse Practitioner Family | DX: L97.822 Non-pressure chronic ulcer of other part of left lower leg with fat layer exposed (principal); S81.802D Unspecified open wound, left lower leg, subsequent encounter; L03.116 Cellulitis of left lower limb; R60.9 Edema, unspecified; I87.2 Venous insufficiency (chronic) (peripheral); I73.9 Peripheral vascular disease, unspecified; E78.00 Pure hypercholesterolemia, unspecified; I48.0 Paroxysmal atrial fibrillation; I11.0 Hypertensive heart disease with heart failure; I50.9 Heart failure, unspecified; J43.9 Emphysema, unspecified; M10.9 Gout, unspecified; M19.90 Unspecified osteoarthritis, unspecified site; Z87.891 Personal history of nicotine dependence; X58.XXXD Exposure to other specified factors, subsequent encounter ==

== ENCOUNTER → 2023-05-03 | Outpatient (CLI) | payer BC | END | disposition home or self-care (01) | LOC: WOUNDCARE 00:31 | PROVIDERS: ATTEND Nurse Practitioner Family | DX: L97.821 Non-pressure chronic ulcer of other part of left lower leg limited to breakdown of skin (principal); L03.116 Cellulitis of left lower limb; S81.802D Unspecified open wound, left lower leg, subsequent encounter; I87.2 Venous insufficiency (chronic) (peripheral); I73.9 Peripheral vascular disease, unspecified; I48.0 Paroxysmal atrial fibrillation; I11.0 Hypertensive heart disease with heart failure; I50.9 Heart failure, unspecified; R60.9 Edema, unspecified; J43.9 Emphysema, unspecified; M10.9 Gout, unspecified; E78.00 Pure hypercholesterolemia, unspecified; Z87.891 Personal history of nicotine dependence; X58.XXXD Exposure to other specified factors, subsequent encounter ==

== ENCOUNTER → 2023-05-10 | Outpatient (CLI) | payer BC | END | disposition home or self-care (01) | LOC: WOUNDCARE 01:27 | PROVIDERS: ATTEND Nurse Practitioner Family | DX: S81.802D Unspecified open wound, left lower leg, subsequent encounter (principal); L97.821 Non-pressure chronic ulcer of other part of left lower leg limited to breakdown of skin; L03.116 Cellulitis of left lower limb; R60.9 Edema, unspecified; I87.2 Venous insufficiency (chronic) (peripheral); I73.9 Peripheral vascular disease, unspecified; I48.0 Paroxysmal atrial fibrillation; E78.00 Pure hypercholesterolemia, unspecified; I48.91 Unspecified atrial fibrillation; I11.0 Hypertensive heart disease with heart failure; I50.9 Heart failure, unspecified; M19.90 Unspecified osteoarthritis, unspecified site; M10.9 Gout, unspecified; J43.9 Emphysema, unspecified; Z87.891 Personal history of nicotine dependence; X58.XXXD Exposure to other specified factors, subsequent encounter ==

== ENCOUNTER → 2023-05-18 | Outpatient (CLI) | payer BC | LOC: WOUNDCARE 03:31 | PROVIDERS: ATTEND Nurse Practitioner Family | DX: L97.822 Non-pressure chronic ulcer of other part of left lower leg with fat layer exposed (principal); I87.2 Venous insufficiency (chronic) (peripheral); S81.802D Unspecified open wound, left lower leg, subsequent encounter; L03.116 Cellulitis of left lower limb; I73.9 Peripheral vascular disease, unspecified; R60.9 Edema, unspecified; I48.0 Paroxysmal atrial fibrillation; E78.00 Pure hypercholesterolemia, unspecified; I11.0 Hypertensive heart disease with heart failure; I50.9 Heart failure, unspecified; J43.9 Emphysema, unspecified; M10.9 Gout, unspecified; M19.90 Unspecified osteoarthritis, unspecified site; Z87.891 Personal history of nicotine dependence ==

== ENCOUNTER → 2023-05-26 | Outpatient (CLI) | payer BC ==
[2023-05-26 10:58] LABS: POTASSIUM 4.4 mmol/L (3.4-5.1)
[2023-05-27 16:08] LABS: FREE KAPPA LIGHT CHAINS 76.9 mg/L (3.3-19.4); FREE LAMBDA LIGHT CHAINS 80.5 mg/L (5.7-26.3); KAPPA/LAMBDA RATIO 0.96 (0.26-1.65)
== END | disposition home or self-care (01) ==
LOC: LAB 09:35
PROVIDERS: ATTEND Internal Medicine Cardiovascular Disease
DX: I42.9 Cardiomyopathy, unspecified (principal)

== ENCOUNTER → 2023-07-26 | Outpatient (CLI) | payer BC ==
[2023-07-26 11:53] LABS: POTASSIUM 5.2 mmol/L (3.4-5.1)
== END | disposition home or self-care (01) ==
LOC: LAB 10:42
PROVIDERS: ATTEND Internal Medicine Cardiovascular Disease
DX: I42.8 Other cardiomyopathies (principal)

== ENCOUNTER → 2023-08-24 | Outpatient (CLI) | payer BC ==
[2023-08-24 10:30] LABS: BILIRUBIN Negative (Negative); BLOOD Negative (Negative); CLARITY Clear (Clear); COLOR Yellow (Yellow); GLUCOSE 1+ (Negative); KETONE Negative (Negative); LEUKO ESTERASE Negative (Negative); NITRITE Negative (Negative); PH 6.5 (4.5-8.0); UROBILINOGEN 0.2 E.U./dl (0.0-1.0)
[2023-08-24 11:05] LABS: URINE CREATININE RANDOM 27.64 mg/dL
[2023-08-24 11:07] LABS: POTASSIUM 4.5 mmol/L (3.4-5.1); TOTAL PROTEIN 7.1 gm/dL (6.0-8.0); URIC ACID 6.4 mg/dL (3.7-9.2)
[2023-08-24 11:08] LABS: EPITHELIAL CELLS TNTC; HYALINE CAST 0-2
[2023-08-24 11:09] LABS: RBC 0-2 rbc/hpf (0-2); WBC 0-2 wbc/hpf (0-5)
== END | disposition home or self-care (01) ==
LOC: LAB 10:00
PROVIDERS: ATTEND Internal Medicine Nephrology
DX: N18.30 Chronic kidney disease, stage 3 unspecified (principal)

== ENCOUNTER → 2023-09-26 | Outpatient (CLI) | payer BC ==
[2023-09-26 10:27] LABS: BILIRUBIN Negative (Negative); BLOOD Negative (Negative); CLARITY Clear (Clear); COLOR Yellow (Yellow); GLUCOSE Trace (Negative); KETONE Negative (Negative); LEUKO ESTERASE Negative (Negative); NITRITE Negative (Negative); PH 5.5 (4.5-8.0); UROBILINOGEN 0.2 E.U./dl (0.0-1.0)
[2023-09-26 10:37] LABS: URINE CREATININE RANDOM 30.75 mg/dL
[2023-09-26 10:41] LABS: EPITHELIAL CELLS TNTC; HYALINE CAST 0-2; RBC 0-2 rbc/hpf (0-2); WBC 0-2 wbc/hpf (0-5)
[2023-09-26 10:53] LABS: ALKALINE PHOSPHATASE 96 U/L (46-116); BUN 56 mg/dl (9-23); CHLORIDE 102 mmol/L (98-107); POTASSIUM 5.1 mmol/L (3.4-5.1); URIC ACID 7.2 mg/dL (3.7-9.2)
[2023-09-26 10:54] LABS: SGPT/ALT < 7 U/L (5-49)
== END | disposition home or self-care (01) ==
LOC: LAB 10:00
PROVIDERS: ATTEND Internal Medicine Nephrology
DX: N18.30 Chronic kidney disease, stage 3 unspecified (principal)

== ENCOUNTER → 2023-11-03 | Outpatient (CLI) | payer BC ==
[~2023-11-03] MED LIST changes: +ALBUTEROL; +ALDACTONE25 MG PO; +DILTIAZEM 24HR360 MG PO; +GOOD NEIGHBOR L10 MG PO; +LOPRESSOR50 M1 PO; +SPIRIVA RESPIMAT4 GM INH; +VIBRAMYCIN HYC100 MG PO
[2023-11-03 09:53] LABS: BILIRUBIN Negative (Negative); BLOOD Negative (Negative); CLARITY Clear (Clear); COLOR Yellow (Yellow); GLUCOSE Negative (Negative); KETONE Negative (Negative); LEUKO ESTERASE Negative (Negative); NITRITE Negative (Negative); UROBILINOGEN 0.2 E.U./dl (0.0-1.0)
[2023-11-03 09:56] LABS: URINE CREATININE RANDOM 34.48 mg/dL
[2023-11-03 10:18] LABS: POTASSIUM 4.8 mmol/L (3.4-5.1); URIC ACID 7.2 mg/dL (3.7-9.2)
[2023-11-03 10:30] LABS: RBC 0-2 rbc/hpf (0-2); WBC 0-2 wbc/hpf (0-5)
== END | disposition home or self-care (01) ==
LOC: LAB 09:27
PROVIDERS: ATTEND Internal Medicine Nephrology
DX: N18.30 Chronic kidney disease, stage 3 unspecified (principal)

== ENCOUNTER 2024-01-17 03:17 | Emergency (ER) | payer BC ==
[~2024-01-17] VITALS: Wt 127.0 kg
[2024-01-17] MEDS ORDERED: TRANEXAMIC ACID 1,000 MG/10 ML VIAL NAS ONE (03:30)
[2024-01-17] MEDS ORDERED: COCAINE 4% T ONE (03:30)
[2024-01-17] MEDS ORDERED: SODIUM CHLORIDE 0.9% 500 ML IV ONE (03:30)
[2024-01-17] MEDS ORDERED: Oxymetazoline Hydrochloride Nasal 15 ml bottle NAS ONE (03:30)
[2024-01-17] MEDS ORDERED: SILVER NITRATE APPLICATOR 1 EACH APP T ONE (03:40)
[2024-01-17 03:43] LABS: BASO % 0.3 % (0.0-1.0); EOS # 0.2 10*3/uL (0.0-0.4); EOS % 1.7 % (1.0-4.0); HEMATOCRIT 33.4 % (42.0-52.0); LYMPH # 1.1 10*3/uL (1.3-4.4); LYMPH % 12.1 % (27.0-41.0); MEAN CELL VOLUME 99.7 fl (80.0-94.0); MEAN CORPUSCULAR HGB 30.4 pg (27.0-31.0); MEAN CORPUSCULAR HGB CONC 30.5 g/dl (33.0-37.0); MEAN PLATELET VOLUME 11.2 fl (9.6-12.3); MONO # 0.5 10*3/uL (0.1-1.0); MONO % 5.5 % (3.0-9.0); NEUT # 7.1 10*3/uL (2.3-7.9); NEUT % 80.1 % (47.0-73.0); PLATELET COUNT AUTOMATED 165 10*3/uL (130-400); RED BLOOD COUNT 3.35 10*6/uL (4.50-5.90); RED CELL DISTRI WIDTH 13.7 % (0-14.5); WHITE BLOOD COUNT 8.9 10*3/uL (4.8-10.8)
[2024-01-17 03:55] LABS: ACT PARTIAL THROMBO TIME 38.7 SECONDS (20.0-32.1)
[2024-01-17 04:02] LABS: POTASSIUM 4.8 mmol/L (3.4-5.1)
[2024-01-17] MEDS ORDERED: CEPHALEXIN500 M1 PO (04:24)
== END 2024-01-17 05:54 | disposition home or self-care (01) ==
LOC: ED 03:17
PROVIDERS: Emergency Medicine
DX: R04.0 Epistaxis (principal); D64.9 Anemia, unspecified; D68.9 Coagulation defect, unspecified; N18.9 Chronic kidney disease, unspecified; I48.91 Unspecified atrial fibrillation; Z98.890 Other specified postprocedural states

== ENCOUNTER → 2024-03-27 | Outpatient (CLI) | payer BC ==
[~2024-03-27] MED LIST changes: +CEPHALEXIN500 M1 PO
[2024-03-27 10:20] LABS: BASO % 0.4 % (0.0-1.0); EOS # 0.4 10*3/uL (0.0-0.4); EOS % 4.5 % (1.0-4.0); HEMATOCRIT 32.3 % (42.0-52.0); MEAN CELL VOLUME 93.6 fl (80.0-94.0); MEAN CORPUSCULAR HGB 27.5 pg (27.0-31.0); MEAN CORPUSCULAR HGB CONC 29.4 g/dl (33.0-37.0); MEAN PLATELET VOLUME 10.9 fl (9.6-12.3); MONO # 0.5 10*3/uL (0.1-1.0); MONO % 6.5 % (3.0-9.0); NEUT # 5.5 10*3/uL (2.3-7.9); NEUT % 71.6 % (47.0-73.0); PLATELET COUNT AUTOMATED 182 10*3/uL (130-400); RED BLOOD COUNT 3.45 10*6/uL (4.50-5.90); RED CELL DISTRI WIDTH 14.1 % (0-14.5); WHITE BLOOD COUNT 7.7 10*3/uL (4.8-10.8)
[2024-03-27 10:37] LABS: BILIRUBIN Negative (Negative); BLOOD Negative (Negative); CLARITY Clear (Clear); COLOR Yellow (Yellow); GLUCOSE Negative (Negative); KETONE Negative (Negative); LEUKO ESTERASE Negative (Negative); NITRITE Negative (Negative); PH 5.5 (4.5-8.0); UROBILINOGEN 0.2 E.U./dl (0.0-1.0)
[2024-03-27 10:47] LABS: POTASSIUM 5.4 mmol/L (3.4-5.1); URIC ACID 6.7 mg/dL (3.7-9.2)
[2024-03-27 10:50] LABS: VITAMIN D, 25-HYDROXY 42.2 ng/mL (30-100)
[2024-03-27 11:32] LABS: RBC 0-2 rbc/hpf (0-2); WBC 0-2 wbc/hpf (0-5)
== END | disposition home or self-care (01) ==
LOC: LAB 09:54
PROVIDERS: ATTEND Internal Medicine Nephrology
DX: N18.30 Chronic kidney disease, stage 3 unspecified (principal); N25.81 Secondary hyperparathyroidism of renal origin; E79.0 Hyperuricemia without signs of inflammatory arthritis and tophaceous disease; D63.1 Anemia in chronic kidney disease

== ENCOUNTER → 2024-05-14 | Outpatient (CLI) | payer BC ==
[2024-05-14 13:54] LABS: BASO # 0.1 10*3/uL (0.0-0.1); BASO % 0.6 % (0.0-1.0); BILIRUBIN Negative (Negative); BLOOD Trace-Lysed (Negative); CLARITY Clear (Clear); COLOR Yellow (Yellow); EOS # 0.7 10*3/uL (0.0-0.4); EOS % 8.1 % (1.0-4.0); GLUCOSE Negative (Negative); HEMATOCRIT 35.8 % (42.0-52.0); KETONE Negative (Negative); LEUKO ESTERASE Negative (Negative); MEAN CELL VOLUME 93.5 fl (80.0-94.0); MEAN CORPUSCULAR HGB 27.7 pg (27.0-31.0); MEAN CORPUSCULAR HGB CONC 29.6 g/dl (33.0-37.0); MEAN PLATELET VOLUME 11.9 fl (9.6-12.3); MONO # 0.5 10*3/uL (0.1-1.0); MONO % 5.4 % (3.0-9.0); NEUT # 6.4 10*3/uL (2.3-7.9); NEUT % 73.5 % (47.0-73.0); NITRITE Negative (Negative); PLATELET COUNT AUTOMATED 144 10*3/uL (130-400); RED BLOOD COUNT 3.83 10*6/uL (4.50-5.90); RED CELL DISTRI WIDTH 16.2 % (0-14.5); RETICULOCYTE % 1.94 % (0.50-2.50); UROBILINOGEN 0.2 E.U./dl (0.0-1.0); WHITE BLOOD COUNT 8.7 10*3/uL (4.8-10.8)
[2024-05-14 14:15] LABS: WBC 0-2 wbc/hpf (0-5)
[2024-05-14 14:17] LABS: POTASSIUM 4.9 mmol/L (3.4-5.1); TOTAL PROTEIN 7.6 gm/dL (6.0-8.0)
[2024-05-14 14:52] LABS: VITAMIN D, 25-HYDROXY 52.6 ng/mL (30-100)
== END | disposition home or self-care (01) ==
LOC: LAB 13:36
PROVIDERS: ATTEND Family Medicine
DX: R79.89 Other specified abnormal findings of blood chemistry (principal); R53.83 Other fatigue; E55.9 Vitamin D deficiency, unspecified; Z79.899 Other long term (current) drug therapy

== ENCOUNTER → 2024-07-26 | Outpatient (CLI) | payer BC ==
[2024-07-26 13:01] LABS: BASO % 0.1 % (0.0-1.0); HEMATOCRIT 38.1 % (42.0-52.0); MEAN CORPUSCULAR HGB 28.5 pg (27.0-31.0); MEAN CORPUSCULAR HGB CONC 29.7 g/dl (33.0-37.0); MEAN PLATELET VOLUME 11.5 fl (9.6-12.3); MONO # 0.6 10*3/uL (0.1-1.0); MONO % 4.9 % (3.0-9.0); NEUT # 9.9 10*3/uL (2.3-7.9); NEUT % 86.1 % (47.0-73.0); PLATELET COUNT AUTOMATED 190 10*3/uL (130-400); RED BLOOD COUNT 3.97 10*6/uL (4.50-5.90); RED CELL DISTRI WIDTH 15.1 % (0-14.5); WHITE BLOOD COUNT 11.5 10*3/uL (4.8-10.8)
[2024-07-26 13:05] LABS: BILIRUBIN Negative (Negative); BLOOD 1+ (Negative); CLARITY Clear (Clear); COLOR Yellow (Yellow); GLUCOSE Negative (Negative); KETONE Negative (Negative); LEUKO ESTERASE Negative (Negative); NITRITE Negative (Negative); UROBILINOGEN 0.2 E.U./dl (0.0-1.0)
[2024-07-26 13:27] LABS: WBC 0-2 wbc/hpf (0-5)
[2024-07-26 13:30] LABS: POTASSIUM 4.8 mmol/L (3.4-5.1); URIC ACID 6.7 mg/dL (3.7-9.2)
== END | disposition home or self-care (01) ==
LOC: LAB 12:38
PROVIDERS: ATTEND Internal Medicine Nephrology
DX: N25.81 Secondary hyperparathyroidism of renal origin (principal); N18.30 Chronic kidney disease, stage 3 unspecified; E79.0 Hyperuricemia without signs of inflammatory arthritis and tophaceous disease; D63.1 Anemia in chronic kidney disease

== ENCOUNTER 2024-11-30 07:33 | Emergency (ER) | payer BC ==
[~2024-11-30] VITALS: Ht 177.8 cm; Wt 136.1 kg
[2024-11-30] MEDS ORDERED: DILTIAZEM 24HR180 MG PO (07:37)
[2024-11-30] MEDS ORDERED: BUMETANIDE2 MG PO (07:40)
[2024-11-30] MEDS ORDERED: Acetaminophen/Oxycodone 5 MG/325 MG TABLET PO ONE (07:55)
[2024-11-30] MEDS ORDERED: Sulfamethoxazole/Trimethopri 1 TAB TAB PO ONE (07:55)
[2024-11-30] MEDS ORDERED: TRAMADOL HCL50 MG PO (07:58)
[2024-11-30] MEDS ORDERED: SEPTDS PO (07:58)
[2024-11-30] MEDS ORDERED: Acetaminophen/Oxycodone 5 MG/325 MG TABLET ONE (09:00)
== END 2024-11-30 09:00 | disposition home or self-care (01) ==
LOC: ED 07:33
DX: R04.0 Epistaxis (principal); J34.89 Other specified disorders of nose and nasal sinuses; J44.9 Chronic obstructive pulmonary disease, unspecified; I48.91 Unspecified atrial fibrillation; I13.0 Hypertensive heart and chronic kidney disease with heart failure and stage 1 through stage 4 chronic kidney disease, or unspecified chronic kidney disease; N18.9 Chronic kidney disease, unspecified; I50.9 Heart failure, unspecified; Z79.899 Other long term (current) drug therapy; Z90.5 Acquired absence of kidney; Z87.891 Personal history of nicotine dependence

== ENCOUNTER → 2025-02-04 | Outpatient (CLI) | payer BC ==
[~2025-02-04] MED LIST changes: +BUMETANIDE2 MG PO; +DILTIAZEM 24HR180 MG PO; +SEPTDS PO; +TRAMADOL HCL50 MG PO
[2025-02-04 11:09] LABS: BASO # 0.0 10*3/uL (0.0-0.1); BASO % 0.4 % (0.0-1.0); EOS # 0.3 10*3/uL (0.0-0.4); EOS % 3.2 % (1.0-4.0); MEAN CELL VOLUME 92.7 fl (80.0-94.0); MEAN CORPUSCULAR HGB 29.3 pg (27.0-31.0); MEAN PLATELET VOLUME 10.3 fl (9.6-12.3); MONO # 0.5 10*3/uL (0.1-1.0); MONO % 6.0 % (3.0-9.0); NEUT # 6.0 10*3/uL (2.3-7.9); NEUT % 77.2 % (47.0-73.0); NUCLEATED RED BLOOD CELL 0.0 % (0.0-0.0); NUCLEATED RED BLOOD CELL 0.0 10*3/uL (0.0-0.0); PLATELET COUNT AUTOMATED 151 10*3/uL (130-400); RED CELL DISTRI WIDTH 13.6 % (0-14.5)
[2025-02-04 11:28] LABS: BILIRUBIN Negative (Negative); BLOOD Negative (Negative); CLARITY Clear (Clear); COLOR Yellow (Yellow); KETONE Negative (Negative); LEUKO ESTERASE Trace (Negative); NITRITE Negative (Negative); PH 5.5 (4.5-8.0); SPECIFIC GRAVITY <= 1.005 (1.001-1.030); UROBILINOGEN 0.2 E.U./dl (0.0-1.0)
[2025-02-04 11:37] LABS: BUN 86.0 mg/dl (9-23)
[2025-02-04 12:13] LABS: VITAMIN D, 25-HYDROXY 49.5 ng/mL (30-100)
[2025-02-04 13:59] LABS: BACTERIA 1+
== END ==
LOC: LAB 10:44
PROVIDERS: ATTEND Internal Medicine Nephrology
DX: N25.81 Secondary hyperparathyroidism of renal origin (principal); N18.30 Chronic kidney disease, stage 3 unspecified; D63.1 Anemia in chronic kidney disease

== ENCOUNTER → 2025-02-21 | Outpatient (CLI) | payer BC | END | disposition home or self-care (01) | LOC: CT 09:40 | PROVIDERS: ATTEND Nurse Practitioner Family | DX: K57.30 Diverticulosis of large intestine without perforation or abscess without bleeding (principal); N18.30 Chronic kidney disease, stage 3 unspecified; I70.0 Atherosclerosis of aorta; M47.816 Spondylosis without myelopathy or radiculopathy, lumbar region; M25.78 Osteophyte, vertebrae ==

== ENCOUNTER 2025-04-09 15:47 | Emergency (ER) | payer BC ==
[~2025-04-09] VITALS: Ht 177.8 cm
[2025-04-09] MEDS ORDERED: TRANEXAMIC ACID 1,000 MG/10 ML VIAL NAS ONE (15:55)
[2025-04-09] MEDS ORDERED: SILVER NITRATE APPLICATOR 1 EACH APP T ONE (15:55)
[2025-04-09] MEDS ORDERED: Albuterol Sulf/Ipratropium 3 ML VIAL NEB ONE (16:10)
[2025-04-09] MEDS ORDERED: CALCITRIOL0.25 MCG PO (16:41)
[2025-04-09] MEDS ORDERED: BREYNA 160-4.10.3 GM INH (16:42)
[2025-04-09 16:43] LABS: BASO # 0.0 10*3/uL (0.0-0.1); BASO % 0.4 % (0.0-1.0); EOS # 0.1 10*3/uL (0.0-0.4); EOS % 1.5 % (1.0-4.0); MEAN CELL VOLUME 96.4 fl (80.0-94.0); MEAN CORPUSCULAR HGB 29.8 pg (27.0-31.0); MEAN PLATELET VOLUME 10.5 fl (9.6-12.3); MONO # 0.5 10*3/uL (0.1-1.0); MONO % 6.4 % (3.0-9.0); NEUT # 5.3 10*3/uL (2.3-7.9); NEUT % 72.9 % (47.0-73.0); NUCLEATED RED BLOOD CELL 0.0 % (0.0-0.0); NUCLEATED RED BLOOD CELL 0.0 10*3/uL (0.0-0.0); PLATELET COUNT AUTOMATED 151 10*3/uL (130-400); RED CELL DISTRI WIDTH 13.5 % (0-14.5)
[2025-04-09 16:57] LABS: BUN 36.0 mg/dl (9-23)
[2025-04-09 17:13] LABS: ACT PARTIAL THROMBO TIME 35.0 SECONDS (20.0-32.1)
[2025-04-09] MEDS ORDERED: BACTRIM 400-801 EACH PO (17:29)
[2025-04-09] MEDS ORDERED: TRAMADOL HCL50 MG PO (17:29)
== END 2025-04-09 17:54 | disposition home or self-care (01) ==
LOC: ED 15:47
PROVIDERS: Emergency Medicine
DX: R04.0 Epistaxis (principal); J44.1 Chronic obstructive pulmonary disease with (acute) exacerbation; R06.2 Wheezing; N18.9 Chronic kidney disease, unspecified; D64.9 Anemia, unspecified; I48.91 Unspecified atrial fibrillation; Z87.891 Personal history of nicotine dependence

== ENCOUNTER → 2025-05-07 | Outpatient (CLI) | payer BC ==
[~2025-05-07] MED LIST changes: +BACTRIM 400-801 EACH PO; +BREYNA 160-4.10.3 GM INH; +CALCITRIOL0.25 MCG PO
[2025-05-07 11:24] LABS: BILIRUBIN Negative (Negative); BLOOD Negative (Negative); CLARITY Clear (Clear); COLOR Yellow (Yellow); KETONE Negative (Negative); LEUKO ESTERASE Negative (Negative); NITRITE Negative (Negative); PH 5.5 (4.5-8.0); SPECIFIC GRAVITY 1.010 (1.001-1.030); UROBILINOGEN 0.2 E.U./dl (0.0-1.0)
[2025-05-07 11:45] LABS: BACTERIA TRACE; WBC 0-2 wbc/hpf (0-5)
[2025-05-07 12:14] LABS: BUN 54.0 mg/dl (9-23)
== END | disposition home or self-care (01) ==
LOC: LAB 10:54
PROVIDERS: ATTEND Nurse Practitioner Family
DX: N25.81 Secondary hyperparathyroidism of renal origin (principal); N18.31 Chronic kidney disease, stage 3a